=== PATIENT | female | born 1995 | race Caucasian/White ===

== ENCOUNTER 2017-10-26 05:44 | Inpatient (IN) | payer MEDICAID ==
[~2017-10-26] VITALS: Ht 175.3 cm; Wt 100.0 kg
[2017-10-26] MEDS ORDERED: OXYTOCIN 30U/ 0.9% NaCL 500ML 500 ML IV ONE (07:47)
[2017-10-26] MEDS ORDERED: NEWBORN KIT ONE (07:47)
[2017-10-26] MEDS ORDERED: OXYTOCIN 30U/ 0.9% NaCL 500ML 500 ML ONE ×2 (07:47→14:06)
[2017-10-26] MEDS ORDERED: D5%-LACTATED RINGERS 1,000 ML IV SCH (07:47)
[2017-10-26] MEDS ORDERED: PREN1TAB60 PO (08:00)
[2017-10-26] MEDS: LACTATED RINGERS 1,000 ML IV SCH ×2 (08:00→08:19)
[2017-10-26] MEDS ORDERED: TERBUTALINE 1 MG/ML, 1ML IVPush PRN (08:00)
[2017-10-26] MEDS ORDERED: FENTANYL PF 100 MCG/2ML IVPush PRN (08:00)
[2017-10-26] MEDS ORDERED: FENTANYL PF 100 MCG/2ML IV PRN (08:00)
[2017-10-26 08:01] VITALS: BP 129/86
[2017-10-26 08:12] LABS: MEAN CORPUSCULAR HGB CONC 33.9 g/dL (32.4-35.8); MEAN CORPUSCULAR VOLUME 91.7 fL (80-100); MEAN PLATELET VOLUME 7.6 fL (7.4-10.4); PLATELET COUNT 314 x10^3/uL (130-400); RED BLOOD COUNT 4.42 x10^6/uL (3.82-5.3); RED CELL DISTRIBUTION WIDTH 13.9 % (9.6-15.2)
[2017-10-26] MEDS ORDERED: FENTANYL PF 100 MCG/2ML ONE ×2 (08:20→11:45)
[2017-10-26] MEDS ORDERED: FENTANYL/BUPIV./NS/PF 0 ML EPIDCONT ONE (08:21)
[2017-10-26] MEDS ORDERED: BUPIVACAINE 0.25% ONE ×2 (08:21→11:45)
[2017-10-26] MEDS ORDERED: LIDOCAINE/PF 1.5%-EPI 1:200K, 30ML ONE (08:21)
[2017-10-26] MEDS ORDERED: OXYcodone/APAP 5/325MG TABLET PO PRN ×2 (09:00)
[2017-10-26] MEDS ORDERED: CARBOPROST TROMETHAMINE 250 MCG/ML, 1ML IM PRN (09:00)
[2017-10-26] MEDS ORDERED: GLYCERIN ADULT SUPP PR PRN (09:00)
[2017-10-26] MEDS ORDERED: MAGNESIUM HYDROXIDE 8%, 30ML UDC PO PRN (09:00)
[2017-10-26] MEDS ORDERED: RHOGAM FROM BLOOD BANK 1 NOTE EA IM/IV ONE (09:00)
[2017-10-26] MEDS ORDERED: CALCIUM CARBONATE 500 MG TAB.CHEW PO PRN (09:00)
[2017-10-26] MEDS ORDERED: ACETAMINOPHEN 325 MG TABLET PO PRN ×2 (09:00)
[2017-10-26] MEDS ORDERED: METOCLOPRAMIDE 5 MG/ML, 2ML IV PRN (09:00)
[2017-10-26] MEDS ORDERED: MISOPROSTOL 200 MCG TABLET PR PRN (09:00)
[2017-10-26] MEDS ORDERED: DIPH,PERTUSS(ACELL),TET VAC/PF NC IM-VACC PRN (09:00)
[2017-10-26] MEDS ORDERED: BISACODYL 10 MG SUPP PR PRN (09:00)
[2017-10-26] MEDS ORDERED: MEASLES,MUMPS&RUBELLA VACC/PF 0.5 ML SQ-VACC PRN (09:00)
[2017-10-26] MEDS ORDERED: METHYLERGONOVINE 0.2 MG/ML IM PRN (09:00)
[2017-10-26] MEDS ORDERED: IBUPROFEN 600 MG TABLET PO PRN (09:00)
[2017-10-26] MEDS ORDERED: ONDANSETRON 2MG/ML, 2ML IV PRN (09:00)
[2017-10-26 09:08] LABS: BASOPHILS # (AUTO) 0.03 x10^3/uL (0-0.1); BASOPHILS % (AUTO) 0 % (0-1); EOSINOPHILS # (AUTO) 0.02 x10^3/uL (0-0.4); EOSINOPHILS % (AUTO) 0 % (1-7); LYMPHOCYTES % (AUTO) 7 % (22-44); MD SCAN; MONOCYTES # (AUTO) 0.23 x10^3/uL (0.2-0.8); MONOCYTES % (AUTO) 1 % (2-9); NEUTROPHILS # (AUTO) 16.79 x10^3/uL (1.8-6.8); NEUTROPHILS % (AUTO) 92 % (42-75)
[2017-10-26] MEDS: PRENATAL VIT/IRON/FA 1 EACH TABLET PO SCH (10:00)
[2017-10-26] MEDS: OXYTOCIN 30U/ 0.9% NaCL 500ML 500 ML IV SCH ×2 (14:07→18:47)
[2017-10-26 15:57] VITALS: BP 106/67
[2017-10-26 19:30] VITALS: BP 127/67
[2017-10-26 20:40] LABS: MEAN CORPUSCULAR HEMOGLOBIN 31.1 pg (27.0-34.8); MEAN CORPUSCULAR VOLUME 91.4 fL (80-100); MEAN PLATELET VOLUME 7.4 fL (7.4-10.4); PLATELET COUNT 276 x10^3/uL (130-400)
[2017-10-26 21:11] LABS: BASOPHILS # (AUTO) 0.06 x10^3/uL (0-0.1); BASOPHILS % (AUTO) 0 % (0-1); EOSINOPHILS # (AUTO) 0.02 x10^3/uL (0-0.4); EOSINOPHILS % (AUTO) 0 % (1-7); LYMPHOCYTES # (AUTO) 2.19 x10^3/uL (1-3.4); LYMPHOCYTES % (AUTO) 12 % (22-44); MD SCAN; MONOCYTES # (AUTO) 0.95 x10^3/uL (0.2-0.8); MONOCYTES % (AUTO) 5 % (2-9); NEUTROPHILS # (AUTO) 14.73 x10^3/uL (1.8-6.8); NEUTROPHILS % (AUTO) 82 % (42-75)
[2017-10-27] VITALS: BP 102/59
[2017-10-27 04:00] VITALS: BP 92/54
[2017-10-27 08:50] VITALS: BP 122/79
[2017-10-27] MEDS: PRENATAL VIT/IRON/FA 1 EACH TABLET PO SCH (09:00)
[2017-10-27] MEDS: DOCUSATE 100 MG CAPSULE PO PRN (10:02)
[2017-10-27 12:32] VITALS: BP 114/69
[2017-10-27 20:20] VITALS: BP 111/70
[2017-10-28 08:05] VITALS: BP 104/64
[2017-10-28] MEDS ORDERED: IBUP-1222 PO (08:58)
[2017-10-28] MEDS: DOCUSATE 100 MG CAPSULE PO PRN (09:07)
[2017-10-28] MEDS: PRENATAL VIT/IRON/FA 1 EACH TABLET PO SCH (09:07)
== END 2017-10-28 17:30 | disposition home or self-care (01) | DRG 775 ==
LOC: LDOP 05:44 → LDIP 07:49 → 2NW 15:10
PROVIDERS: ADMIT Obstetrics & Gynecology; ATTEND Obstetrics & Gynecology
PROC: 10E0XZZ Delivery of Products of Conception, External Approach (ICD-10-PCS; principal; 2017-10-26)
PROC: 0KQM0ZZ Repair Perineum Muscle, Open Approach (ICD-10-PCS; 2017-10-26)
PROC: 3E0R3BZ Introduction of Anesthetic Agent into Spinal Canal, Percutaneous Approach (ICD-10-PCS; 2017-10-26)
PROC: 00HU33Z Insertion of Infusion Device into Spinal Canal, Percutaneous Approach (ICD-10-PCS; 2017-10-26)
DX: O70.1 Second degree perineal laceration during delivery (principal); Z37.0 Single live birth; Z23 Encounter for immunization; Z3A.40 40 weeks gestation of pregnancy
CPT/HCPCS: 36415; 85025; 86850; 86900; 90715; J3490; J2590; J7120